=== PATIENT | female | born 1985 | race African-American/Black ===

== ENCOUNTER 2017-02-09 17:27 | Emergency (ER) | payer BC ==
[2017-02-09 18:52] LABS: Hematocrit 40 % (35-47); Hemoglobin 13.1 g/dl (12.0-16.0); Mean Corpuscular HGB Conc 33 g/dl (31-36); Mean Corpuscular Hemoglobin 30 pg (27-31); Mean Corpuscular Volume 89 fL (80-97); Mean Platelet Volume 8 um3 (7.4-10.4); Red Blood Count 4.44 10^6/ul (4.0-5.4); Red Cell Distribution Width 15 % (10.5-15); White Blood Count 6.5 10^3/ul (3.5-10.8)
[2017-02-09] MEDS ORDERED: NS 0.9% 1000 ML* 2,000 ML IV ONE (18:56)
[2017-02-09 19:07] LABS: Albumin 4.6 g/dL (3.2-5.2); BUN/Creatinine Ratio 10.3 (8-20); Calcium 9.5 mg/dL (8.6-10.3); EGFR African American 110.1 (>60); EGFR Non-African American 85.6 (>60); Globulin 3.4 g/dL (2-4); Potassium 3.6 mmol/L (3.5-5.0); Total Bilirubin 0.6 mg/dL (0.2-1.0)
[2017-02-09 20:47] LABS: Urine Bacteria Absent (Absent); Urine Bilirubin Negative (Negative); Urine Glucose Negative (Negative); Urine Nitrite Negative (Negative)
--- NOTE | 2017-02-09 20:52 | ED ---
Thalia Ayers Erika, scribed for Meek Burr MD on 02/09/17 at 1854 . GI/ HPI - HPI Summary HPI Summary: Patient is a 31-year-old female presenting to the ED with a CC of lightheadedness and vaginal bleeding for the past few days. Patient reports that she was seen at her PCP today for a pre- appointment, as pt is trying to get , and had a positive urine test. Patient was sent to the ED to rule out ectopic . Pt reports that she had a nexplanon removed on 01/10/2017, and started her LNMP 01/11. Bleeding starting a few days ago was not abnormal for her - pt thought she was starting her period. Patient also reports that today at her PCP, she noticed midline suprapubic pain rated a 6/10 with palpation, but 0/10 without palpation. Pt did not have a pelvic exam at her PCP. A0. She does not know her blood type. Patient denies any fever, chills, and burning with urination. Pt reports a Hx of iron deficiency anemia as a kid. - History of Current Complaint Chief Complaint: EDUrogenitalProblems Time Seen by Provider: 02/09/17 18:40 Stated Complaint: R/O ECTOPIC PREG-SENT FROM [facility] Obtained From: Patient, Family/[employer] - Onset/Duration: Started Days Ago, Atraumatic, Still Present Timing: Constant Severity: Moderate Pain Intensity: 6 - with deep palpation Location of Pain: Suprapubic Associated Signs and Symptoms: Positive: Lightheadedness. Negative: Fever, Chills, UTI Symptoms Additional Signs & Symptoms: Positive: Vaginal Bleeding Aggravating Factor(s): Palpation - Allergy/Home Medications Allergies/Adverse Reactions: Allergies Allergy/AdvReac Type Severity Reaction Status Date / Time No Known Allergies Allergy Verified 04/15/16 10:34 PMH/Surg Hx/FS Hx/Imm Hx Endocrine/Hematology History: Denies: Hx Diabetes Cardiovascular History: Denies: Hx Hypertension, Hx Pacemaker/ICD History: Denies: Hx Renal Disease Sensory History: Denies: Hx Hearing Aid Psychiatric History: Denies: Hx Panic Disorder - Surgical History Surgery Procedure, Year, and Place: UMBILICAL HERNIA REPAIR 01/2011 Infectious Disease History: No Infectious Disease History: Denies: Traveled Outside the [place] in Last 30 Days - Family History Known Family History: Positive: Hypertension - Social History Occupation: Employed Full-time Lives: With Family Review of Systems Negative: Fever, Chills Positive: Abdominal Pain - with palpation Genitourinary: Other - vaginal bleeding Negative: burning Neurological: Other - lightheadedness All Other Systems Reviewed And Are Negative: Yes Physical Exam Triage Information Reviewed: Yes Vital Signs On Initial Exam: Initial Vitals Temp Pulse Resp BP Pulse Ox 98.3 F 76 12 121/70 100 02/09/17 17:33 02/09/17 17:33 02/09/17 17:33 02/09/17 17:33 02/09/17 17:33 Vital Signs Reviewed: Yes Appearance: Positive: Well-Appearing, No Pain Distress Skin: Positive: Warm, Skin Color Reflects Adequate Perfusion, Dry Head/Face: Positive: Normal Head/Face Inspection Eyes: Positive: EOMI, VINAY ENT: Positive: Normal ENT inspection Neck: Positive: Supple, Nontender Respiratory/Lung Sounds: Positive: Clear to Auscultation, Breath Sounds Present Cardiovascular: Positive: RRR Abdomen Description: Positive: Soft, Other: - Mild suprapubic and RLQ tenderness with palpation Bowel Sounds: Positive: Present Musculoskeletal: Positive: Normal, Strength/ROM Intact Neurological: Positive: Normal, Sensory/Motor Intact, Alert, Oriented to Person Place, Time Psychiatric: Positive: Affect/Mood Appropriate Diagnostics - Vital Signs Vital Signs Temp Pulse Resp BP Pulse Ox 02/09/17 17:33 98.3 F 76 12 121/70 100 - Laboratory Lab Results: Lab Results 02/09/17 02/09/17 02/09/17 Range/Units 18:45 18:45 18:45 WBC 6.5 (3.5-10.8) 10^3/ul RBC 4.44 (4.0-5.4) 10^6/ul Hgb 13.1 (12.0-16.0) g/dl Hct 40 (35-47) % MCV 89 (80-97) fL MCH 30 (27-31) pg MCHC 33 (31-36) g/dl RDW 15 (10.5-15) % Plt Count 219 (150-450) 10^3/ul MPV 8 (7.4-10.4) um3 Neut % (Auto) 46.5 (38-83) % Lymph % (Auto) 45.2 (25-47) % [place] % (Auto) 6.4 (1-9) % Eos % (Auto) 0.5 (0-6) % Baso % (Auto) 1.4 (0-2) % Absolute Neuts (auto) 3.0 (1.5-7.7) 10^3/ul Absolute Lymphs (auto) 2.9 (1.0-4.8) 10^3/ul Absolute Monos (auto) 0.4 (0-0.8) 10^3/ul Absolute Eos (auto) 0 (0-0.6) 10^3/ul Absolute Basos (auto) 0.1 (0-0.2) 10^3/ul Absolute Nucleated RBC 0.01 10^3/ul Nucleated RBC % 0.2 INR (Anticoag Therapy) 1.13 H (0.89-1.11) APTT 31.2 (26.0-36.3) seconds Sodium 134 (133-145) mmol/L Potassium 3.6 (3.5-5.0) mmol/L Chloride 102 (101-111) mmol/L Carbon Dioxide 27 (22-32) mmol/L Anion Gap 5 (2-11) mmol/L BUN 8 (6-24) mg/dL Creatinine 0.78 (0.51-0.95) mg/dL Est GFR ( Amer) 110.1 (>60) Est GFR (Non-Af Amer) 85.6 (>60) BUN/Creatinine Ratio 10.3 (8-20) Glucose 81 (70-100) mg/dL Calcium 9.5 (8.6-10.3) mg/dL Total Bilirubin 0.60 (0.2-1.0) mg/dL AST 14 (13-39) U/L ALT 9 (7-52) U/L Alkaline Phosphatase 53 (34-104) U/L Total Protein 8.0 (6.4-8.9) g/dL Albumin 4.6 (3.2-5.2) g/dL Globulin 3.4 (2-4) g/dL Albumin/Globulin Ratio 1.4 (1-3) Beta HCG, Quant 839.80 mIU/mL Urine Color Urine Appearance Urine pH (5-9) Ur Specific [place] (1.010-1.030) Urine Protein (Negative) Urine Ketones (Negative) Urine Blood (Negative) Urine Nitrate (Negative) Urine Bilirubin (Negative) Urine Urobilinogen (Negative) Ur Leukocyte Esterase (Negative) Urine WBC (Auto) (Absent) Urine RBC (Auto) (Absent) Ur Squamous Epith Cells (Absent) Urine Bacteria (Absent) Urine Glucose (Negative) Blood Type 02/09/17 02/09/17 Range/Units 18:45 20:25 WBC (3.5-10.8) 10^3/ul RBC (4.0-5.4) 10^6/ul Hgb (12.0-16.0) g/dl Hct (35-47) % MCV (80-97) fL MCH (27-31) pg MCHC (31-36) g/dl RDW (10.5-15) % Plt Count (150-450) 10^3/ul MPV (7.4-10.4) um3 Neut % (Auto) (38-83) % Lymph % (Auto) (25-47) % [place] % (Auto) (1-9) % Eos % (Auto) (0-6) % Baso % (Auto) (0-2) % Absolute Neuts (auto) (1.5-7.7) 10^3/ul Absolute Lymphs (auto) (1.0-4.8) 10^3/ul Absolute Monos (auto) (0-0.8) 10^3/ul Absolute Eos (auto) (0-0.6) 10^3/ul Absolute Basos (auto) (0-0.2) 10^3/ul Absolute Nucleated RBC 10^3/ul Nucleated RBC % INR (Anticoag Therapy) (0.89-1.11) APTT (26.0-36.3) seconds Sodium (133-145) mmol/L Potassium (3.5-5.0) mmol/L Chloride (101-111) mmol/L Carbon Dioxide (22-32) mmol/L Anion Gap (2-11) mmol/L BUN (6-24) mg/dL Creatinine (0.51-0.95) mg/dL Est GFR ( Amer) (>60) Est GFR (Non-Af Amer) (>60) BUN/Creatinine Ratio (8-20) Glucose (70-100) mg/dL Calcium (8.6-10.3) mg/dL Total Bilirubin (0.2-1.0) mg/dL AST (13-39) U/L ALT (7-52) U/L Alkaline Phosphatase (34-104) U/L Total Protein (6.4-8.9) g/dL Albumin (3.2-5.2) g/dL Globulin (2-4) g/dL Albumin/Globulin Ratio (1-3) Beta HCG, Quant mIU/mL Urine Color Straw Urine Appearance Clear Urine pH 6.0 (5-9) Ur Specific [place] 1.008 L (1.010-1.030) Urine Protein Negative (Negative) Urine Ketones 1+ H (Negative) Urine Blood 1+ H (Negative) Urine Nitrate Negative (Negative) Urine Bilirubin Negative (Negative) Urine Urobilinogen Negative (Negative) Ur Leukocyte Esterase Negative (Negative) Urine WBC (Auto) Absent (Absent) Urine RBC (Auto) Trace(0-2/hpf) (Absent) Ur Squamous Epith Cells Present H (Absent) Urine Bacteria Absent (Absent) Urine Glucose Negative (Negative) Blood Type O Positive Result Diagrams: 02/09/17 18:45 02/09/17 18:45 Lab Statement: Any lab studies that have been ordered have been reviewed, and results considered in the medical decision making process. Re-Evaluation - Re-Evaluation First Eval Re-Evaluation Time: 20:15 Comment: Discussed HCG results and need for repeat HCG. Discussed follow up care. GIGU Course/Dx - Course Course Of Treatment: NO CRITICAL CARE TIME. Assessment/Plan: DISCUSSED WITH DR VALLES. NO US NOW WILL NOT SEE [facility]ETUS THIS EARLY IN . PLAN TO RECHECK HCG AT NOON ON 02/11/17. PATIENT WILL RETURN IF WORSE. DISCHARGE HOME STABLE. - Diagnoses Provider Diagnoses: - Physician Notifications Discussed Care Of Patient With: Dr. Valles (OB-[facility] Tender) at 20:09 - discussed patient's history and plan of care. recommends HCG recheck in 48 hours. Discharge - Discharge Plan Condition: Stable Disposition: HOME Patient Education Materials: (ED) Referrals: [facility] [Provider Group] Enriqueta Mcdonald MD [Primary Care Provider] - Sheila Valles MD [Medical Doctor] - Additional Instructions: FOLLOW UP WITH YOUR DOCTOR. [facility], 02/10/17. DR VALLES OF [facility] WAS CONSULTED BY PHONE IN THE EMERGENCY DEPARTMENT. DISCUSS HAVING A REPEAT QUANTITATIVE HCG AT NOON AT THE HOSPITALIST ON TUESDAY, . RETURN TO THE EMERGENCY DEPARTMENT FOR ANY WORSENING OF YOUR CONDITION; PAIN, FEVER, YOU FEEL ILL, EXCESSIVE BLEEDING OR QUESTIONS OR CONCERNS. The documentation as recorded by the Thalia viveros Erika accurately reflects the service I personally performed and the decisions made by me, Meek Burr MD.
[2017-02-09 21:50] VITALS: BP 110/58
== END 2017-02-09 21:49 | disposition home or self-care (01) ==
LOC: ED 17:27
DX: O46.90 Antepartum hemorrhage, unspecified, unspecified trimester (principal); R10.9 Unspecified abdominal pain; R42 Dizziness and giddiness
CPT/HCPCS: 36415; 80053; 81003; 81015; 84702; 85025; 85610; 85730; 86900; 86901; 99282

== ENCOUNTER 2017-10-04 20:15 | Inpatient (IN) | payer BC, OTHER ==
[2017-10-04] MEDS ORDERED: Nalbuphine* 20 MG/ML 1 ML VIAL IV ONE (23:00)
[2017-10-04] MEDS ORDERED: Promethazine INJ(RESTRICTED)* 25 MG/ML 1 ML VIAL IV ONE (23:00)
[2017-10-04 23:12] LABS: Hematocrit 40 % (35-47); Hemoglobin 13.8 g/dl (12.0-16.0); Mean Corpuscular HGB Conc 34 g/dl (31-36); Mean Corpuscular Hemoglobin 31 pg (27-31); Mean Corpuscular Volume 92 fL (80-97); Mean Platelet Volume 9 um3 (7.4-10.4); Red Blood Count 4.39 10^6/ul (4.0-5.4); Red Cell Distribution Width 15 % (10.5-15); White Blood Count 13.5 10^3/ul (3.5-10.8)
[2017-10-05] MEDS ORDERED: Promethazine INJ(RESTRICTED)* 25 MG/ML 1 ML VIAL ONE (04:48)
[2017-10-05] MEDS ORDERED: Nalbuphine* 20 MG/ML 1 ML VIAL ONE (04:48)
[2017-10-05] MEDS ORDERED: OBEPIDURAL* 250 ML ONE (09:13)
[2017-10-05] MEDS ORDERED: ceFOXitin 2 GM IVPREMIX* 2 GM/50 ML BAG ONE (11:20)
[2017-10-05] MEDS ORDERED: Sodium Citrate/Citric Acid* 15 ML UDC ONE (11:20)
[2017-10-05] MEDS ORDERED: Ondansetron INJ* 2 MG/ML VIAL ONE (11:26)
[2017-10-05] MEDS ORDERED: fentaNYL* 50 MCG/ML 2 ML VIAL (100 MCG VIAL) ONE (11:31)
[2017-10-05] MEDS ORDERED: Morphine PF AMP (0.5MG/ML)* 5 MG/10 ML AMP ONE (11:31)
[2017-10-05] MEDS ORDERED: Lidocaine 2% EPI 1:200000 MPF* 20 ML VIAL ONE (11:34)
[2017-10-05] MEDS ORDERED: Sodium Bicarbonate 8.4% IV* 50 ML VIAL ONE (11:34)
[2017-10-05] MEDS ORDERED: Succinylcholine* 20 MG/ML 10 ML VIAL ONE (12:23)
[2017-10-05] MEDS ORDERED: Propofol* 10 MG/ML 20 ML BTL IV PUSH ONE (12:23)
[2017-10-05] MEDS ORDERED: OXYTOCIN* 10 UNITS/ML 1 ML VIAL ONE (12:27)
[2017-10-05] MEDS ORDERED: Midazolam* 1 MG/ML 2 ML VIAL (2 MG) ONE (12:30)
[2017-10-05] MEDS ORDERED: Phenylephrine IV* 40 MCG/ML 10 ML SYRINGE ONE (12:43)
[2017-10-05] MEDS ORDERED: Glycerin ADULT SUPP PR PRN (13:05)
[2017-10-05] MEDS ORDERED: Dibucaine 1% 28.35 GM TUBE PR PRN (13:05)
[2017-10-05] MEDS ORDERED: Acetaminophen TAB* 325 MG PO PRN ×3 (13:05→16:29)
[2017-10-05] MEDS ORDERED: Witch Hazel PAD* JAR TOPICAL PRN (13:05)
[2017-10-05] MEDS ORDERED: fentaNYL* 50 MCG/ML 2 ML VIAL (100 MCG VIAL) IV PRN (13:22)
[2017-10-05] MEDS ORDERED: oxyCODONE/Acetamin 5/325 MG* TAB PO PRN (13:22)
[2017-10-05] MEDS ORDERED: Ondansetron INJ* 2 MG/ML VIAL IV PRN ×2 (13:22→16:29)
[2017-10-05] MEDS ORDERED: HYDROcodone/ACETAMIN 5-325 MG* 1 TAB PO PRN ×2 (13:22→16:29)
[2017-10-05] MEDS ORDERED: Ketorolac INJ* 30 MG/ML 1 ML VIAL IV PRN ×2 (13:22→16:29)
[2017-10-05] MEDS ORDERED: Nalbuphine* 20 MG/ML 1 ML VIAL IV PRN ×2 (13:22→16:29)
[2017-10-05] MEDS ORDERED: Metoclopramide IV* 5 MG/ML 2 ML VIAL IV PRN (13:22)
[2017-10-05] MEDS ORDERED: HYDROmorphone INJ* 1 MG/ML CARPUJECT SYRINGE IV PRN (13:22)
[2017-10-05] MEDS ORDERED: Oxytocin in LR* 20 UNITS/1,000 ML BAG IVPB SCH (14:00)
[2017-10-05] MEDS: Ibuprofen TAB* 600 MG PO PRN ×2 (15:18→21:41)
[2017-10-05] MEDS: oxyCODONE/Acetamin 5/325 MG* TAB PO PRN ×3 (15:19→22:54)
[2017-10-05] MEDS ORDERED: Ibuprofen TAB* 600 MG PO PRN (16:29)
[2017-10-05] MEDS ORDERED: EPHEDrine (Pressors)* 50 MG/ML VIAL IV PUSH PRN (16:29)
[2017-10-05] MEDS ORDERED: OBEPIDURAL* 250 ML EPIDURAL SCH (17:00)
[2017-10-05] MEDS: Docusate CAP* 100 MG PO SCH (19:34)
[2017-10-05] MEDS: Simethicone TAB* 80 MG TAB.CHEW PO SCH ×2 (19:34)
[2017-10-06] MEDS: Docusate CAP* 100 MG PO SCH ×4 (02:26→20:31)
[2017-10-06] MEDS: oxyCODONE/Acetamin 5/325 MG* TAB PO PRN ×4 (03:11→20:30)
[2017-10-06] MEDS: Ibuprofen TAB* 600 MG PO PRN ×3 (03:11→16:01)
--- NOTE | 2017-10-06 06:22 | OP ---
DATE OF OPERATION: 10/05/17 - ROOM #[id number] DATE OF : 83 SURGEON: Sheila Valles MD CHEMICAL PRODUCTION TECHNICIAN: Kira Taylor CNM ELEMENTARY CLASSROOM TEACHER: Phillip Kenney MD ANESTHESIOLOGIST: Dr. Blanco. ANESTHESIA: Epidural. PRE-OP DIAGNOSIS: Intrauterine at 38-4/7 weeks, arrest of dilation, and category II heart tracing. POST-OP DIAGNOSIS: Intrauterine at 38-4/7 weeks, arrest of dilation, and category II heart tracing, delivered. OPERATIVE PROCEDURE: Primary low transverse section. ESTIMATED BLOOD LOSS: 800 cc. URINE OUTPUT: 200 cc of pink-tinged urine. FLUIDS: 1000 cc of crystalloid. FINDINGS: Revealed a vertex male infant with Apgars 9 at 1 minute and 9 at 5 minutes. Nuchal cord x1 with the full cord present around shoulder. Normally palpated tubes and ovaries. Uterus was too enlarged secondary to fibroids, was exteriorized. There was a 5 cm pedunculated anterior fibroid above the uterine incision. Placenta manually extracted, three-vessel cord intact. COMPLICATIONS: None apparent. DISPOSITION: Stable to recovery room. DESCRIPTION OF PROCEDURE: The patient was placed in dorsal lithotomy position. Anesthesia was tested to appropriate level. The patient was identified with universal protocol and incision was made on the skin with scalpel. This was carried down to the fascia. Fascia was scored in the midline and extended laterally and superiorly using curved Rutherford scissors. Fascia was sharply and bluntly from the rectus muscle superiorly and inferiorly. Peritoneum was entered bluntly. The peritoneal incision was extended bluntly. Bladder blade was inserted. Lower uterine segment was identified, tented up with an Allis. Incision was made with scalpel. This was carried down through to membrane. The incision was extended laterally and superiorly with bandage scissors. The cord was noted to be delivering through the uterine incision. The head was then delivered. Nuchal cord reduced as well as the cord near shoulder. After complete delivery, the cord was then allowed to milk for approximately 30 seconds. The cord was then clamped and cut and then infant was handed off to awaiting electrician substation. Appropriate cord blood was obtained. Placenta was then manually extracted, noted to be 3-vessel cord and intact. The uterus was noted to be too large to exteriorize. The uterine incision was clamped with broad Allises and the uterine cavity was explored, noted to be free of any membranes or placental tissue. The uterine hysterotomy site was reapproximated in 2 layers, first layer running locked, 2 layer running imbricated. Hemostasis was assured. At that point, the pedunculated 5 cm anterior fibroid was visualized, noted to have approximately a 2 cm stalk. There was smaller fibroid inferior to that, approximately 1 cm size and a larger lateral fibroid was appreciated through palpation. Both ovaries and tubes palpated to be normal, but could not be visualized, but are palpated normally. The hysterotomy site was again revisualized, noted to be hemostatic. Copious lavage was performed. The peritoneum was then reapproximated using 3- 0 Vicryl in a running fashion. The subfascial area was visualized, hemostasis was assured with Bovie coagulation, and the fascia itself was reapproximated using 0 Vicryl x2 in a running fashion. Subcu was lavaged, hemostasis was assured with Bovie coagulation, and the skin was then reapproximated using a 4- 0 Monocryl in a subcuticular fashion. Mastisol and Steris were applied. All sponge, instrument, and blade counts were correct throughout the case and the patient tolerated the procedure well. [id number]/[facility] #: [id number] [facility]ITAL[facility]ig[facility]
[2017-10-06 07:02] LABS: Hematocrit 35 % (35-47); Hemoglobin 11.7 g/dl (12.0-16.0); Mean Corpuscular HGB Conc 33 g/dl (31-36); Mean Corpuscular Hemoglobin 31 pg (27-31); Mean Corpuscular Volume 93 fL (80-97); Mean Platelet Volume 9 um3 (7.4-10.4); Red Cell Distribution Width 15 % (10.5-15); White Blood Count 21.4 10^3/ul (3.5-10.8)
[2017-10-06] MEDS ORDERED: Ferrous Gluconate TAB* 324 MG TAB PO SCH (09:00)
[2017-10-06] MEDS: Simethicone TAB* 80 MG TAB.CHEW PO SCH ×4 (09:14→20:31)
[2017-10-07] MEDS: oxyCODONE/Acetamin 5/325 MG* TAB PO PRN ×6 (00:38→23:08)
[2017-10-07] MEDS: Ibuprofen TAB* 600 MG PO PRN ×4 (02:20→21:31)
[2017-10-07] MEDS: Simethicone TAB* 80 MG TAB.CHEW PO SCH ×4 (08:53→21:32)
[2017-10-07] MEDS: Docusate CAP* 100 MG PO SCH ×3 (08:53→21:31)
[2017-10-08] MEDS: oxyCODONE/Acetamin 5/325 MG* TAB PO PRN ×2 (05:11→11:00)
[2017-10-08] MEDS: Ibuprofen TAB* 600 MG PO PRN ×2 (05:12→10:59)
[2017-10-08] MEDS: Docusate CAP* 100 MG PO SCH (08:17)
[2017-10-08] MEDS: Simethicone TAB* 80 MG TAB.CHEW PO SCH (08:18)
[2017-10-08 11:22] VITALS: BP 104/57
== END 2017-10-08 12:13 | disposition home or self-care (01) | DRG 540 ==
LOC: MCHOBOUT 20:15 → MCHOB 22:37
PROVIDERS: ADMIT Obstetrics & Gynecology; ATTEND Obstetrics & Gynecology
PROC: 10907ZC Drainage of Amniotic Fluid, Therapeutic from Products of Conception, Via Natural or Artificial Opening (ICD-10-PCS; principal; 2017-10-06)
PROC: 4A1HX4Z Monitoring of Products of Conception, Cardiac Electrical Activity, External Approach (ICD-10-PCS; 2017-10-06)
PROC: 10H07YZ Insertion of Other Device into Products of Conception, Via Natural or Artificial Opening (ICD-10-PCS; 2017-10-06)
PROC: 10D00Z1 Extraction of Products of Conception, Low, Open Approach (ICD-10-PCS; 2017-10-06)
DX: O69.81X0 Labor and delivery complicated by cord around neck, without compression, not applicable or unspecified (principal); O34.13 Maternal care for benign tumor of corpus uteri, third trimester; Z3A.38 38 weeks gestation of pregnancy; Z37.0 Single live birth; O62.1 Secondary uterine inertia
CPT/HCPCS: 36415; 85025; 85027; 86850; 86900; 86901; A9270-GY; J0330; J0694; J2250; J2300; J2405; J2550; J2590; J2704; J3010